=== PATIENT | female | born 1950 | race Caucasian/White ===

== ENCOUNTER → 2016-07-11 | Outpatient (CLI) | payer OTHER ==
[~2016-07-11] MED LIST: ASPIRIN81 M1 PO; ATENOLOL50 MG PO; ATORVASTATIN CA40 MG PO; CRANBERRY300 MG PO; CYMBALTA20 MG PO; GLUCOSAMINE CHONDR PO; HYCET1 ML PO; HYDROCHLOROTH12.5 M1 PO; LISINOPRIL10 MG PO; PERCOCET1 TA1 PO; SLIPPERY ELM; STOOL SOFTENER100 M1 PO; VITAMIN D-31000 UNIT PO
--- NOTE | 2016-07-11 16:19 | DIAGNOSTIC IMAGING REPORT ---
PROCEDURE: XR MAJOR JT INJ OR ASPIRATION INDICATION: GREATER TROCHANTERIC BURSITIS, LEFT TECHNIQUE: The patient was advised of the usual risks and complications including infection, bleeding, and allergy. OCASIO prone position. Following sterile preparation and 1% lidocaine anesthetic, fluoroscopic guidance (4.2 minutes, 1985.89 mGy) was utilized to place a 22-gauge spinal needle into the posterior lateral aspect of the greater trochanter of the left proximal femur. Intraarticular position was confirmed with 1 ml of Isovue 200 contrast material (re-aspirated). Subsequently, a 2 ml solution (1 ml 40 mg/mL Kenalog, 1 ml 0.5% Marcaine) was infused and the needle was withdrawn. COMPARISON: Comparison made to fluoroscopic injection of the left greater trochanter bursa on 02/23/2016. FINDINGS: Five views. Confirmation of intra bursal position. The patient tolerated the procedure reasonably well and was discharged home in satisfactory condition with instructions to resume routine activity the following day, and to call me for any untoward symptoms (increasing pain/swelling). IMPRESSION: 1. Successful fluoroscopically guided therapeutic injection of the left greater trochanteric bursa.
== END ==
LOC: XR SRH 14:59
PROC: 3E0U33Z Introduction of Anti-inflammatory into Joints, Percutaneous Approach (ICD-10-PCS; principal; 2016-07-11)
PROC: BQ111ZZ Fluoroscopy of Left Hip using Low Osmolar Contrast (ICD-10-PCS; principal; 2016-07-11)
DX: M70.62 Trochanteric bursitis, left hip (principal)
CPT/HCPCS: 82445